=== PATIENT | female | born 1990 | race Caucasian/White ===

== ENCOUNTER 2017-07-12 09:42 | Emergency (ER) | payer BC ==
--- NOTE | 2017-07-12 11:00 | UC ---
HPI Febrile Illness - HPI Summary HPI Summary: 27 year old female presents with complains of fever, chills, and body aches. - History of Current Complaint Time Seen by Provider: 07/12/17 11:00 Hx Obtained From: Patient Timing: Constant Initial Severity: Moderate Current Severity: Moderate - Allergy/Home Medications Allergies/Adverse Reactions: Allergies Allergy/AdvReac Type Severity Reaction Status Date / Time Morphine Allergy Intermediate rash, Verified 07/12/17 11:06 violence Home Medications: Home Medications Control 07/12/17 [History] buPROPion TAB* [Wellbutrin TAB*] 300 mg 07/12/17 [History] PMH/Surg Hx/FS Hx/Imm Hx Previously Healthy: Yes - Surgical History Surgical History: None - Family History Known Family History: Positive: None - Social History Alcohol Use: None Review of Systems Constitutional: Fever, Chills Skin: Negative Eyes: Negative ENT: Negative Respiratory: Cough Cardiovascular: Negative Gastrointestinal: Negative Genitourinary: Negative Motor: Negative Neurovascular: Negative Musculoskeletal: Negative Neurological: Negative Psychological: Negative All Other Systems Reviewed And Are Negative: Yes Physical Exam Triage Information Reviewed: Yes Vital Signs Reviewed: Yes Eye Exam: Normal ENT: Positive: Pharyngeal erythema, Nasal congestion, Nasal drainage Dental Exam: Normal Neck exam: Normal Neck: Positive: 1 Respiratory: Positive: Wheezing Cardiovascular Exam: Normal Abdominal Exam: Normal Musculoskeletal Exam: Normal Neurological Exam: Normal Psychological Exam: Normal Skin Exam: Normal Course/Dx - Diagnoses Clinic Provider Diagnoses: cough. fever. chills Discharge - Discharge Plan Condition: Stable Disposition: HOME Prescriptions: Benzonatate CAP* [Tessalon 100 MG CAP*] 100 mg PO TID #30 cap LoraTADine TAB(NF) [Claritin 10 MG TAB(NF)] 10 mg PO DAILY #30 tab Oseltamivir CAP* [Tamiflu CAP*] 75 mg PO BID #10 cap Promethazine-Dm [Promethazine/Dextromethor 6.25-15 mg/5Ml] 1 teasp PO Q8H PRN # 120 ml PRN Reason: Cough Patient Education Materials: Influenza (ED) Referrals: Don Alvarado [Primary Care Provider] -
[2017-07-12 11:06] VITALS: BP 121/69
== END 2017-07-12 11:42 | disposition home or self-care (01) ==
LOC: UCCORT 09:42
DX: R05 Cough (principal); R50.9 Fever, unspecified; Z88.5 Allergy status to narcotic agent
CPT/HCPCS: 87502; 99212; G0463

== ENCOUNTER 2017-07-25 09:06 | Emergency (ER) | payer BC ==
[2017-07-25 09:37] VITALS: BP 106/55
--- NOTE | 2017-07-25 09:42 | UC ---
Truncal Trauma HPI - HPI Summary HPI Summary: 27 year old female. c/o having the flu 2 weeks ago, and with cough, developed L side rib pain. Worsened yesterday while getting into her car. Pain /. No trauma otherwise. No SOB. She did have a fever 2 weeks ago when she was on the plane and went to [place] and took 3 flights. Still with cough. To travel again soon. [ End ] - History Of Current Complaint Chief Complaint: UCRespiratory Stated Complaint: LFT RIB AREA PAIN Time Seen by Provider: 07/25/17 09:40 Hx Obtained From: Patient Hx Last Menstrual Period: 07/11/17 ?: No Onset/Duration: Sudden Onset Severity Initially: Moderate Severity Currently: Moderate Aggravating Factor(s): Deep Breathing, Cough Alleviating factor(s): Nothing Associated Signs And Symptoms: Positive: Cough - Allergies/Home Medications Allergies/Adverse Reactions: Allergies Allergy/AdvReac Type Severity Reaction Status Date / Time Morphine Allergy Intermediate rash, Verified 07/25/17 09:31 violence PMH/Surg Hx/FS Hx/Imm Hx Previously Healthy: Yes - Surgical History Surgical History: Yes Surgery Procedure, Year, and Place: breast reduction. lymph node from neck. 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 Lives: With Family Alcohol Use: Occasionally Substance Use Type: None Smoking Status (MU): Never Smoked Tobacco - Immunization History Most Recent Influenza Vaccination: never Review of Systems Constitutional: Fatigue Respiratory: Cough Musculoskeletal: Myalgia - rib pain Is Patient Immunocompromised?: No All Other Systems Reviewed And Are Negative: Yes Physical Exam Triage Information Reviewed: Yes Appearance: Well-Appearing, Well-Nourished, Pain Distress - moderate Vital Signs: Initial Vital Signs Temp 98.6 F 07/25/17 09:32 Pulse 93 07/25/17 09:32 Resp 20 07/25/17 09:32 BP 106/55 07/25/17 09:32 Pulse Ox 100 07/25/17 09:32 Vital Signs Reviewed: Yes Eye Exam: Normal ENT Exam: Normal Neck exam: Normal Respiratory Exam: Normal Respiratory: Positive: Lungs clear, Normal breath sounds, No respiratory distress, No accessory muscle use. Negative: Respiratory distress, Decreased breath sounds, Crackles, Rhonchi, Stridor, Wheezing Cardiovascular Exam: Normal Abdomen Description: Positive: Soft, CVA Tenderness (L) Musculoskeletal Exam: Normal Musculoskeletal: Positive: ROM Limited @ - left lateral rib pain and posterior / CVA pain to palpation. no rash. no redness. no bruising. Neurological Exam: Normal Psychological Exam: Normal Skin Exam: Normal Diagnostics - Laboratory Diagnostic Studies Completed/Ordered: Reference #: [id number]. Rib fx 10th rib Truncal Trauma Course/Dx - Course Course Of Treatment: At this time appears to be costochondritis /rib fracture. No SOB with exertion but with pain that inhibits her ability to move. Has tried APAP that has helped but still with pain . With her trip coming up she is concerned and her father is concerned for infection but no S/S of infection / pneumonia. We discussed S/S of PE and if any SOB/ palpitations/ MORATAYA needs further work up like CTA chest which we can not do here at this UC. LMP . She is aware. She declined going to ED for further work up with labs and CTA and aware of risks. Does not clinically appear to be PE but more of costochondritis / rib fx pain from her cough and her pain is the main reason she is here. Given toradol at this time and it did improve pain. Will advise APAP / NSAIDs and a occasional norco for severe pain . - Differential Dx/Diagnosis Differential Diagnosis/HQI/PQRI: Chest Wall Contusion, Pneumothorax, Rib Fracture Provider Diagnoses: Rib fx 10th rib left Discharge - Discharge Plan Condition: Good Disposition: HOME Prescriptions: HYDROcodone/ACETAMIN 5-325 MG* [[place] 5-325 TAB*] 1 tab PO Q12H PRN #10 tab MDD 2 PRN Reason: Severe Pain Ibuprofen TAB* [Motrin TAB* 600 MG] 600 mg PO Q8H PRN #30 tab PRN Reason: Pain Patient Education Materials: Rib Fracture (ED) Referrals: Don Alvarado [Primary Care Provider] - 4 Days Additional Instructions: IMPRESSION: NONDISPLACED FRACTURE OF THE LEFT LATERAL 10TH RIB.
[2017-07-25] MEDS ORDERED: Ketorolac INJ* 30 MG/ML 1 ML VIAL IM ONE (09:53)
--- NOTE | 2017-07-25 10:12 | RAD ---
INDICATION: Cough left side rib pain. COMPARISON: There are no prior studies available for comparison. TECHNIQUE: Dual-energy PA and lateral views of the chest were obtained. FINDINGS: The heart is within normal limits in size. Mediastinal and hilar contours appear within normal limits. The lungs are clear. No pleural effusion is present. There is a nondisplaced fracture of the left lateral 10th rib. IMPRESSION: NONDISPLACED FRACTURE OF THE LEFT LATERAL 10TH RIB.
== END 2017-07-25 10:55 | disposition home or self-care (01) ==
LOC: UCCORT 09:06
DX: M84.48XA Pathological fracture, other site, initial encounter for fracture (principal); Z72.89 Other problems related to lifestyle
CPT/HCPCS: 71046; 96372; 99212; G0463; J1885

== ENCOUNTER 2018-05-14 19:02 | Emergency (ER) | payer BC ==
[2018-05-14] MEDS ORDERED: Acetaminophen TAB* 325 MG PO ONE (19:52)
[2018-05-14] MEDS ORDERED: Ibuprofen ADULT LIQ* 600 MG/30 ML UDC PO ONE (20:16)
--- NOTE | 2018-05-14 20:28 | UC ---
General HPI - HPI Summary HPI Summary: pt is c/o weakness, fever and chills plus a temp to 103 since this am. also c/o a runny nose, scratchy throat and body aches. no v/d/dysuria. no cough or sob. - History of Current Complaint Chief Complaint: UCRespiratory Stated Complaint: FEVER Time Seen by Provider: 05/14/18 20:07 Hx Obtained From: Patient, Family/911 Emergency Services Dispatcher Hx Last Menstrual Period: 03/19 Timing: Constant Pain Intensity: 7 Alleviating: nothing - Allergy/Home Medications Allergies/Adverse Reactions: Allergies Allergy/AdvReac Type Severity Reaction Status Date / Time MS Morphine [Morphine] Allergy Intermediate rash, Verified 07/25/17 09:31 violence Home Medications: Home Medications Acetaminophen [Acetaminophen Extra Strength] 1,000 mg PO ONCE 05/14/18 [History Confirmed 05/14/18] L.acidoph,Paracasei, B.lactis [Probiotic] 1 each PO DAILY 05/14/18 [History Confirmed 05/14/18] Levonorgestrel [Plan B One-Step] 1.5 mg PO ONCE 05/14/18 [History Confirmed ] Sambucol 1 dose PO Q6H PRN 05/14/18 [History] Vitamin B Complex CAP* [B Complex CAP*] 1 cap PO DAILY 05/14/18 [History Confirmed 05/14/18] PMH/Surg Hx/FS Hx/Imm Hx Psychological History: Anxiety - Surgical History Surgical History: Yes Surgery Procedure, Year, and Place: breast reduction. lymph node from neck. T& A - Family History Known Family History: Positive: Hypertension - Social History Occupation: Employed Full-time Lives: With Family Alcohol Use: Occasionally Substance Use Type: None Smoking Status (MU): Never Smoked Tobacco - Immunization History Most Recent Influenza Vaccination: never Vaccination Up to Date: Yes Review of Systems Constitutional: Fever, Chills Skin: Negative Eyes: Negative ENT: Sore Throat, Sinus Congestion Respiratory: Negative Cardiovascular: Negative Gastrointestinal: Negative Genitourinary: Negative Motor: Negative Neurovascular: Negative Musculoskeletal: Myalgia Neurological: Negative Psychological: Negative Is Patient Immunocompromised?: No All Other Systems Reviewed And Are Negative: Yes Physical Exam Triage Information Reviewed: Yes Appearance: Ill-Appearing - but non toxic Vital Signs: Initial Vital Signs Temp 103.7 F 05/14/18 19:37 Pulse 138 05/14/18 19:37 Resp 24 05/14/18 19:37 BP 145/87 05/14/18 19:37 Pulse Ox 100 05/14/18 19:37 Eyes: Positive: Conjunctiva Clear ENT: Positive: Pharynx normal, Nasal congestion, Nasal drainage - clear, TMs normal Neck: Positive: Supple, Nontender, No Lymphadenopathy. Negative: Nuchal Rigidity Respiratory: Positive: Lungs clear, Normal breath sounds, No respiratory distress Cardiovascular: Positive: No Murmur, Brisk Capillary Refill, Tachycardia Abdomen Description: Positive: Nontender, No Organomegaly, Soft, CVA Tenderness (L) - +/-. Negative: CVA Tenderness (R), Distended, Guarding Bowel Sounds: Positive: Present Musculoskeletal: Positive: ROM Intact Neurological: Positive: Alert Psychological: Positive: Normal Response To Family, Age Appropriate Behavior Skin Exam: Other - Flushed and warm Diagnostics - Laboratory Diagnostic Studies Completed/Ordered: rapid strep and flu are negative Re-Evaluation - Re-Evaluation First Eval Re-Evaluation Time: 21:32 Change: Improved - HR down to 108. pt notes sweaty now but feeling much improved. Bodyaches have resolved. only very mild headache and no CVA tenderness. Pt taking po fluids. Course/Dx - Course Course Of Treatment: rapid strep and flu are negative. much improved post tx. no indication for antibiotic tx. c/w influenza like illness. pt declined tx with tamiflu. agrres to close f/u with pcp and go to Er for any worsening. - Differential Dx - Multi-Symptom Provider Diagnoses: Influenza like illness Discharge - Sign-Out/Discharge Documenting (check all that apply): Patient Departure All imaging exams completed and their final reports reviewed: No Studies - Discharge Plan Condition: Improved Disposition: HOME Patient Education Materials: Influenza (DC) Forms: *Work Release Referrals: Don Alvarado [Primary Care Provider] - 3 Days Additional Instructions: GO TO ER IMMEDIATELY FOR ANY CHANGES OR WORSENING. - Billing Disposition and Condition Condition: IMPROVED Disposition: Home
[2018-05-14 20:50] VITALS: BP 107/59
== END 2018-05-14 21:42 | disposition home or self-care (01) ==
LOC: UCCORT 19:02
DX: J11.1 Influenza due to unidentified influenza virus with other respiratory manifestations (principal); F41.9 Anxiety disorder, unspecified; R00.0 Tachycardia, unspecified; Z88.5 Allergy status to narcotic agent
CPT/HCPCS: 81003; 87651; 99212; A9270-GY; G0463

== ENCOUNTER 2018-05-18 09:21 | Emergency (ER) | payer BC ==
--- NOTE | 2018-05-18 09:35 | UC ---
Ear Complaint HPI - HPI Summary HPI Summary: Patient is a 28-year-old female, without any significant past medical history who present today with upper respiratory symptoms for past few days. She was seen on Saturday(05/14/18) . Her rapid strep test and flu test was negative and she was diagnosed with viral illness. She had a fever of 100F at home and no fever today. Now having bilateral ear pain, she is not sure if she is experiencing any decreased hearing but she is stillhaving sinus congestion/ pressure, post nasal drip, cough and sore throat. Feels that her neck and ears are all congested and swollen and it hurts to swallow. No sick contacts . No skin rash. She feels very tired. She has also started to notice that the cough is productive with yellowish-green phlegm. - History of Current Complaint Stated Complaint: BILATERAL EARS/ SINUS COMPLAINT Time Seen by Provider: 05/18/18 09:33 Hx Obtained From: Patient Hx Last Menstrual Period: 03/19 ?: No - April 12 - Allergies/Home Medications Allergies/Adverse Reactions: Allergies Allergy/AdvReac Type Severity Reaction Status Date / Time morphine Allergy Rash, Verified 05/18/18 09:32 violence Home Medications: Home Medications Ibuprofen TAB* [Advil TAB*] 400 mg PO Q6H PRN 05/18/18 [History Confirmed ] PMH/Surg Hx/FS Hx/Imm Hx - Additional Past Medical History Additional PMH: No significant past medical history Previously Healthy: Yes Other Endocrine History: negative Other Cardiovascular History: negative Other Respiratory History: negative Other GI/ History: negative Other Neurological History: negative Other Psychological History: negative Other Cancer History: negative - Surgical History Surgical History: Yes Surgery Procedure, Year, and Place: breast reduction. lymph node from neck. T& A - Family History Known Family History: Positive: Hypertension - Social History Alcohol Use: Occasionally Substance Use Type: None Smoking Status (MU): Never Smoked Tobacco - Immunization History Most Recent Influenza Vaccination: never Vaccination Up to Date: Yes Review of Systems Constitutional: Fever Skin: Negative Eyes: Negative ENT: Sore Throat, Ear Ache, Nasal Discharge, Sinus Congestion, Sinus Pain/ Tenderness, Other - Dysphagia Respiratory: Cough - Productive of yellowish-green phlegm Cardiovascular: Negative Gastrointestinal: Negative Genitourinary: Negative Motor: Negative Neurovascular: Negative Musculoskeletal: Negative Neurological: Negative Psychological: Negative Is Patient Immunocompromised?: No All Other Systems Reviewed And Are Negative: Yes Physical Exam - Summary Physical Exam Summary: Physical Exam: Const: Appears well. No signs of apparent distress present. Alert and oriented x 3. Musculo: Walks with a normal gait. Head/Face: Atraumatic, normocephalic on inspection. Eyes: EOMI and PERRLA in both eyes. Conjunctivae clear. No discharge noted ENT: Hearing normal, TM normal appearing on the right side, left ear tympanic membrane may be minimally red. There is pharyngeal erythema without exudates There is tender post auricular and posterior cervical lymph nodes. Respiratory: Respirations are unlabored. Lungs clear to auscultation bilaterally, no wheezing , rhonchi or rales noted . CVS: Regular rate and Rhythm, S1S2 normal , no murmurs identified. Extremities: Peripheral circulation is grossly normal. Pulses 2+ Abdomen : Soft non tender , nondistended , Bowel sounds present . No guarding , rebound tenderness or rigidity noted. Skin: No lesions or rash located on the upper extremities or on the lower extremities. Neuro: Cranial nerves II to XII intact, motor and sensory intact. DTR Intact bilaterally. Mood is normal. Affect is normal. Triage Information Reviewed: Yes Vital Signs Reviewed: Yes Ear Complaint Course/Dx - Course Course Of Treatment: During the visit today, we obtained a Monospot test and further testing for infectious mononucleosis . We discussed the findings and further plan. There is a good chance that her viral infection or infectious mononucleosis symptoms are resolving. I will prescribe the medication to the pharmacy for a possible walking pneumonia . She will fill the medication if her Monospot test comes back negative. She will follow up with her primary care doctor as discussed. Patient expressed understanding . - Differential Dx/Diagnosis Provider Diagnoses: Acute Viral illness. possible Infectious mononucleosis Discharge - Sign-Out/Discharge Documenting (check all that apply): Patient Departure All imaging exams completed and their final reports reviewed: No Studies - Discharge Plan Condition: Stable Disposition: HOME Prescriptions: Azithromyxin LAYLA (NF) [Z-Layla (Zithromax) 250 mg tabs #6] 2 tab PO .TODAY, THEN 1 DAILY #6 tab Patient Education Materials: Mononucleosis (ED), Pharyngitis (ED) Referrals: Don Alvarado [Primary Care Provider] - 3 Days Additional Instructions: Please start taking the medication as prescribed to the pharmacy if we are Monospot test is negative. Supportive treatment with keeping herself hydrated, throat lozenges and saline gargles. Ibuprofen as needed for fever. Follow up with your primary care doctor in 3 days. Return to Urgent care / ER if symptoms get worse. - Billing Disposition and Condition Condition: STABLE Disposition: Home
[2018-05-18 09:40] VITALS: BP 120/78
--- NOTE | 2018-05-21 07:21 | UC ---
- Progress Note Progress Note: + EBC IgG + nuclear ag remote infection no change rosalva 05/21/2018 Discharge - Sign-Out/Discharge Documenting (check all that apply): Post-Discharge Follow Up All imaging exams completed and their final reports reviewed: No Studies - Discharge Plan Condition: Stable Disposition: HOME Prescriptions: Azithromyxin LAYLA (NF) [Z-Layla (Zithromax) 250 mg tabs #6] 2 tab PO .TODAY, THEN 1 DAILY #6 tab Patient Education Materials: Mononucleosis (ED), Pharyngitis (ED) Referrals: Don Alvarado [Primary Care Provider] - 3 Days Additional Instructions: Please start taking the medication as prescribed to the pharmacy if we are Monospot test is negative. Supportive treatment with keeping herself hydrated, throat lozenges and saline gargles. Ibuprofen as needed for fever. Follow up with your primary care doctor in 3 days. Return to Urgent care / ER if symptoms get worse. - Billing Disposition and Condition Condition: STABLE Disposition: Home
== END 2018-05-18 10:22 | disposition home or self-care (01) ==
LOC: UCCORT 09:21
DX: B34.9 Viral infection, unspecified (principal); R09.81 Nasal congestion; R05 Cough; J02.9 Acute pharyngitis, unspecified; R09.82 Postnasal drip; Z88.5 Allergy status to narcotic agent
CPT/HCPCS: 36415; 86308; 86664; 86665; 99212; G0463

== ENCOUNTER 2019-03-03 07:02 | Emergency (ER) | payer BC ==
[2019-03-03 07:23] VITALS: BP 125/69
--- NOTE | 2019-03-03 07:33 | UC ---
Throat Pain/Nasal Noah HPI - HPI Summary HPI Summary: sore throat x 2 days pain is 5 out of 10 , worse when swallowing, better with Tylenol + nasal congestion , pnd, facial pressure + fever, chills, body aches no cough - History of Current Complaint Chief Complaint: UCGeneralIllness Stated Complaint: FEVER,THROAT COMPLAINT Time Seen by Provider: 03/03/19 07:24 Hx Obtained From: Patient Hx Last Menstrual Period: 02/20/19 ?: No Onset/Duration: Gradual Onset, Lasting Days - 2, Still Present Severity: Moderate Pain Intensity: 5 Cough: None Associated Signs & Symptoms: Positive: Sinus Discomfort, Nasal Discharge, Fever. Negative: Dysphagia, FB Sensation, Drooling, Wheezing, Hoarseness, Rash - Allergies/Home Medications Allergies/Adverse Reactions: Allergies Allergy/AdvReac Type Severity Reaction Status Date / Time morphine Allergy Rash, Verified 03/03/19 07:19 violence Home Medications: Home Medications Cholecalciferol TAB* [Vitamin D TAB*] 1,000 unit PO DAILY 03/03/19 [History Confirmed 03/03/19] Pnv No.95/Ferrous Fum/Folic AC [ Caplet] 1 each PO DAILY 03/03/19 [ History Confirmed 03/03/19] PMH/Surg Hx/FS Hx/Imm Hx Previously Healthy: Yes - Surgical History Surgical History: Yes Surgery Procedure, Year, and Place: breast reduction. lymph node from neck. T& A - Family History Known Family History: Positive: Hypertension - Social History Alcohol Use: Rare Substance Use Type: None Smoking Status (MU): Never Smoked Tobacco - Immunization History Most Recent Influenza Vaccination: never Vaccination Up to Date: Yes Review of Systems All Other Systems Reviewed And Are Negative: Yes Constitutional: Positive: Fever, Chills, Fatigue Skin: Positive: Negative Eyes: Positive: Negative ENT: Positive: Sore Throat, Nasal Discharge, Sinus Congestion, Sinus Pain/ Tenderness Respiratory: Positive: Negative Cardiovascular: Positive: Negative Musculoskeletal: Positive: Myalgia Is Patient Immunocompromised?: No Physical Exam Triage Information Reviewed: Yes Appearance: Well-Appearing, No Pain Distress, Well-Nourished Vital Signs: Initial Vital Signs Temp 99.9 F 03/03/19 07:16 Pulse 109 03/03/19 07:16 Resp 16 03/03/19 07:16 BP 125/69 03/03/19 07:16 Pulse Ox 97 03/03/19 07:16 Vital Signs Reviewed: Yes Eye Exam: Normal Eyes: Positive: Conjunctiva Clear ENT: Positive: Normal ENT inspection, Hearing grossly normal, Pharyngeal erythema, Nasal congestion, TMs normal. Negative: TM bulging, TM dull, TM red, Tonsillar swelling, Tonsillar exudate Neck: Positive: Supple, Nontender, No Lymphadenopathy Respiratory: Positive: Chest non-tender, Lungs clear, Normal breath sounds Cardiovascular: Positive: RRR, No Murmur, Pulses Normal Abdominal Exam: Normal Musculoskeletal Exam: Normal Skin Exam: Normal Throat Pain/Nasal Course/Dx - Differential Dx/Diagnosis Provider Diagnosis: Strep pharyngitis Discharge - Sign-Out/Discharge Documenting (check all that apply): Patient Departure All imaging exams completed and their final reports reviewed: No Studies - Discharge Plan Condition: Stable Disposition: HOME Prescriptions: Amoxicillin PO (*) [Amoxicillin 875 MG (*)] 875 mg PO BID #20 tab Patient Education Materials: Strep Throat (DC) Referrals: Cam Griffin NP [Primary Care Provider] - If Needed - Billing Disposition and Condition Condition: STABLE Disposition: Home
== END 2019-03-03 07:42 | disposition home or self-care (01) ==
LOC: UCCORT 07:02
DX: J02.0 Streptococcal pharyngitis (principal)
CPT/HCPCS: 87651; 99212; G0463

== ENCOUNTER 2019-09-07 09:43 | Emergency (ER) | payer BC ==
[2019-09-07 10:45] VITALS: BP 125/61
--- NOTE | 2019-09-07 10:48 | UC ---
Ear Complaint HPI - HPI Summary HPI Summary: 29-year-old female, 24 weeks gestation, with left earache, sore throat and head congestion since yesterday. - History of Current Complaint Chief Complaint: UCEar Stated Complaint: SINUSES/L EAR PAIN Time Seen by Provider: 09/07/19 10:36 Hx Obtained From: Patient Hx Last Menstrual Period: 02/20/19 ?: No Onset/Duration: Gradual Onset Severity Initially: Mild Severity Currently: Mild Pain Intensity: 5 Aggravating Factors: Nothing Alleviating Factors: Nothing Associated Signs/Symptoms: Positive: URI Symptoms - Allergies/Home Medications Allergies/Adverse Reactions: Allergies Allergy/AdvReac Type Severity Reaction Status Date / Time morphine Allergy Rash, Verified 09/07/19 10:42 violence Home Medications: Home Medications Magnesium Oxide [Magnesium] 250 mg PO DAILY 09/07/19 [History Confirmed 09/07/19 ] PMH/Surg Hx/FS Hx/Imm Hx Previously Healthy: Yes Cardiovascular History: Other - History of cardiac arrhythmia - Surgical History Surgical History: Yes Surgery Procedure, Year, and Place: breast reduction. lymph node from neck. T& A - Family History Known Family History: Positive: Hypertension - Social History Alcohol Use: None Substance Use Type: None Smoking Status (MU): Never Smoked Tobacco - Immunization History Most Recent Influenza Vaccination: never Vaccination Up to Date: Yes Review of Systems All Other Systems Reviewed And Are Negative: Yes ENT: Positive: Sore Throat, Ear Ache - Left earache, Nasal Discharge - Clear nasal coryza Is Patient Immunocompromised?: No Physical Exam Triage Information Reviewed: Yes Appearance: Well-Appearing, No Pain Distress, Well-Nourished Vital Signs: Initial Vital Signs Temp 98.3 F 09/07/19 10:40 Pulse 98 09/07/19 10:40 Resp 16 09/07/19 10:40 BP 125/61 09/07/19 10:40 Pulse Ox 100 09/07/19 10:40 Vital Signs Reviewed: Yes Eyes: Positive: Conjunctiva Clear ENT: Positive: Hearing grossly normal, Pharyngeal erythema - Minimal pharyngeal erythema, TMs normal, Uvula midline. Negative: Trismus, Muffled voice, Sinus tenderness Neck exam: Normal Respiratory: Positive: Lungs clear, Normal breath sounds, No respiratory distress, No accessory muscle use Cardiovascular: Positive: RRR, No Murmur, Pulses Normal, Brisk Capillary Refill Musculoskeletal Exam: Normal Neurological Exam: Normal Psychological Exam: Normal Skin Exam: Normal Ear Complaint Course/Dx - Course Course Of Treatment: Rapid strep test: Negative The patient is comfortable here and in no distress. I feel this is a viral upper respiratory illness but she is to recheck with her primary care provider in 3 or 4 days if continued sore throat or symptoms or any worsening symptoms. - Differential Dx/Diagnosis Provider Diagnosis: Pharyngitis, URI (upper respiratory infection) Discharge ED - Sign-Out/Discharge Documenting (check all that apply): Patient Departure All imaging exams completed and their final reports reviewed: No Studies - Discharge Plan Condition: Good Disposition: HOME Patient Education Materials: Pharyngitis (ED) Referrals: Cam Griffin NP [Primary Care Provider] - Additional Instructions: Increase fluids, warm saltwater gargles, throat lozenges. Definite follow-up with your primary care provider in 3 or 4 days for continued symptoms. - Billing Disposition and Condition Condition: GOOD Disposition: Home
== END 2019-09-07 11:18 | disposition home or self-care (01) ==
LOC: UCCORT 09:43
DX: J06.9 Acute upper respiratory infection, unspecified (principal); J02.9 Acute pharyngitis, unspecified; H92.02 Otalgia, left ear; Z88.5 Allergy status to narcotic agent
CPT/HCPCS: 87651; 99211; G0463

== ENCOUNTER 2019-09-08 09:11 | Emergency (ER) | payer BC ==
[2019-09-08 09:46] VITALS: BP 126/68
[2019-09-08 10:10] LABS: Influenza A Molecular Negative (Negative); Influenza B Molecular Negative (Negative)
--- NOTE | 2019-09-08 10:32 | UC ---
Respiratory Complaint HPI - HPI Summary HPI Summary: cough x 3 days cough is dry , worse with deep breathing, better with rest nasal congestion , pnd, sore throat, + fever, chills body aches - History of Current Complaint Chief Complaint: UCRespiratory Stated Complaint: FEVER, CONGESTION Time Seen by Provider: 09/08/19 09:49 Hx Obtained From: Patient Hx Last Menstrual Period: 08/2018 ?: Yes Onset/Duration: Gradual Onset, Lasting Days - 3, Still Present Timing: Constant Severity Initially: Moderate Severity Currently: Moderate Pain Intensity: 4 Pain Scale Used: 0-10 Numeric Character: Cough: Nonproductive Aggravating Factors: Exertion, Deep Breaths Alleviating Factors: Nothing Associated Signs And Symptoms: Positive: Fever, Chills, URI, Nasal Congestion - Allergies/Home Medications Allergies/Adverse Reactions: Allergies Allergy/AdvReac Type Severity Reaction Status Date / Time morphine Allergy Rash, Verified 09/08/19 09:38 violence PMH/Surg Hx/FS Hx/Imm Hx - Additional Past Medical History Additional PMH: migraine, sinusitis Neurological History: Migraine - Surgical History Surgical History: Yes Surgery Procedure, Year, and Place: breast reduction. lymph node from neck. T& A - Family History Known Family History: Positive: Hypertension - Social History Alcohol Use: None Substance Use Type: None Smoking Status (MU): Never Smoked Tobacco - Immunization History Most Recent Influenza Vaccination: never Vaccination Up to Date: Yes Review of Systems All Other Systems Reviewed And Are Negative: Yes Constitutional: Positive: Fever, Chills, Fatigue Skin: Positive: Negative Eyes: Positive: Negative ENT: Positive: Sore Throat, Nasal Discharge Respiratory: Positive: Cough Cardiovascular: Positive: Negative Is Patient Immunocompromised?: No Physical Exam Triage Information Reviewed: Yes Appearance: Well-Appearing, No Pain Distress, Well-Nourished Vital Signs: Initial Vital Signs Temp 99.6 F 09/08/19 09:40 Pulse 112 09/08/19 09:40 Resp 14 09/08/19 09:40 BP 126/68 09/08/19 09:40 Pulse Ox 98 09/08/19 09:40 Vital Signs Reviewed: Yes Eye Exam: Normal Eyes: Positive: Conjunctiva Clear ENT: Positive: Normal ENT inspection, Hearing grossly normal, Pharynx normal, Nasal congestion, Nasal drainage, TMs normal. Negative: Pharyngeal erythema, TM bulging, TM dull, TM red Neck: Positive: Supple, Nontender, No Lymphadenopathy Respiratory: Positive: Chest non-tender, Lungs clear, Normal breath sounds Cardiovascular: Positive: Tachycardia Abdominal Exam: Normal Respiratory Course/Dx - Differential Dx/Diagnosis Provider Diagnosis: URI (upper respiratory infection) Discharge ED - Sign-Out/Discharge Documenting (check all that apply): Patient Departure All imaging exams completed and their final reports reviewed: No Studies - Discharge Plan Condition: Stable Disposition: HOME Patient Education Materials: Viral Syndrome (ED) Referrals: Cam Griffin NP [Primary Care Provider] - If Needed - Billing Disposition and Condition Condition: STABLE Disposition: Home
== END 2019-09-08 10:24 | disposition home or self-care (01) ==
LOC: UCCORT 09:11
DX: J06.9 Acute upper respiratory infection, unspecified (principal); Z88.5 Allergy status to narcotic agent